=== PATIENT | male | born 1990 | race Caucasian/White ===

== ENCOUNTER 2022-03-28 13:29 | Emergency (ER) | payer OTHER ==
[~2022-03-28] VITALS: Ht 188 cm; Wt 82.1 kg
--- NOTE | 2022-03-28 13:40 | NUR ---
GABRIELLE RA 84 [place] [employer],ETOH,ALCOHOL BOTTLE BESIDE HIM PER EMS
--- NOTE | 2022-03-28 13:45 | NUR ---
unable to obtain information , patient is very sleepy and not responding to questions . will continue to monitor
[2022-03-28 15:45] LABS: BASOPHILS % (AUTO) 0.1 % (0.0-2.0); EOSINOPHILS % (AUTO) 0.1 % (0.0-6.0); HEMATOCRIT 42 % (39-51); HEMOGLOBIN 13.9 g/dL (13.5-17.5); LYMPHOCYTES # (AUTO) 0.7 K/uL (0.8-4.8); MEAN CORPUSCULAR HGB CONC 33 g/dl (31.0-36.0); MEAN CORPUSCULAR VOLUME 91 fL (80-96); MONOCYTES # (AUTO) 0.6 K/uL (0.1-1.30); MONOCYTES % (AUTO) 8.7 % (2.0-12.0); NEUTROPHILS # (AUTO) 5.7 K/uL (1.8-8.9); NEUTROPHILS % (AUTO) 81.1 % (43.0-81.0); PLATELET COUNT (AUTO) 72 K/uL (150-450); RED BLOOD CELL COUNT(AUTO) 4.55 MIL/uL (4.5-6.0)
[2022-03-28 15:57] LABS: CALCIUM, SERUM 8.5 mg/dL (8.5-10.1); CREATININE 0.8 mg/dL (0.6-1.3); POTASSIUM 3.4 mmol/L (3.5-5.1)
[2022-03-28 16:12] LABS: ALBUMIN 3.6 g/dL (3.4-5.0); BILIRUBIN,DIRECT 0.1 mg/dL (0.0-0.2); BILIRUBIN,TOTAL 0.5 mg/dL (0.2-1.0); TOTAL PROTEIN, SERUM 7.6 g/dL (6.4-8.2)
--- NOTE | 2022-03-28 16:50 | NUR ---
no change in condition since arrival to emergency room
--- NOTE | 2022-03-28 18:23 | NUR ---
patient verbalized that he is taking zoloft and seroquel
--- NOTE | 2022-03-28 19:02 | NUR ---
urine sample obtained sent to lab
--- NOTE | 2022-03-28 19:04 | NUR ---
patient is awake, information obtained from patient. sent to admiting to update the info.
[2022-03-28 19:10] VITALS: BP 128/78
[2022-03-28 19:20] LABS: LYMPHOCYTES % (MANUAL) 11 % (16-48); MONOCYTES % (MANUAL) 6 % (0-11.0); NEUTROPHILS % (MANUAL) 83 (42-76)
[2022-03-28 19:41] LABS: BILIRUBIN,URINE NEGATIVE (NEGATIVE); COLOR,URINE YELLOW (YELLOW); LEUKOCYTE ESTERASE ,URINE NEGATIVE (NEGATIVE); NITRITE, URINE NEGATIVE (NEGATIVE); PROTEIN,URINE NEGATIVE (NEGATIVE); UGLUCOSE 1+ mg/dL (NEGATIVE); UROBILINOGEN,URINE 0.2 EU/dL (0.2)
[2022-03-28 19:44] LABS: BACTERIA,URINE None seen /HPF (None Seen); RBC,URINE 0-2 /HPF (0-2); SQUAMOUS EPITHELIAL CELL,UR Few /HPF (None Seen)
--- NOTE | 2022-03-28 20:00 | NUR ---
Patient discharged to home in stable condition. Written and verbal after care instructions given. Patient verbalizes understanding of instruction.
== END 2022-03-28 21:00 | disposition home or self-care (01) ==
LOC: EDBD 13:31 → ER 13:31
DX: S05.10XA Contusion of eyeball and orbital tissues, unspecified eye, initial encounter (principal); F10.10 Alcohol abuse, uncomplicated; X58.XXXA Exposure to other specified factors, initial encounter; Y93.89 Activity, other specified; Y92.89 Other specified places as the place of occurrence of the external cause; Y99.8 Other external cause status; Y90.8 Blood alcohol level of 240 mg/100 ml or more
CPT/HCPCS: 36415; 70450-TC; 80048-TC; 80076-TC; 81001; 85025-TC; G0480

== ENCOUNTER 2022-07-15 01:19 | Emergency (ER) | payer OTHER ==
[~2022-07-15] VITALS: Ht 185.4 cm; Wt 81.6 kg
--- NOTE | 2022-07-15 01:45 | NUR ---
Pt is noted alert, responsive as he is brought in C/O open wound to both upper and Lower Ext. Pt care continue as awaits MD orders.
[2022-07-15] MEDS ORDERED: DOXYCYCLINE HYCLATE (100 MG) 100 MG TABLET PO ONE (03:30)
[2022-07-15] MEDS ORDERED: DOXYCYCLINE HYCLATE (100 MG) 100 MG TABLET ONE (03:36)
--- NOTE | 2022-07-15 03:42 | NUR ---
Vibramycin 100mg PO given as ordered. Pt care continue.
[2022-07-15] MEDS ORDERED: DOXY100C2 PO (04:07)
--- NOTE | 2022-07-15 04:59 | NUR ---
Patient discharged to home in stable condition via security trainer. Written and verbal after care instructions given. Patient verbalizes understanding of instruction.
[2022-07-15 05:08] VITALS: BP 118/76
== END 2022-07-15 05:09 | disposition home or self-care (01) ==
LOC: ER 01:22
DX: L03.116 Cellulitis of left lower limb (principal); L40.9 Psoriasis, unspecified; Z60.2 Problems related to living alone